=== PATIENT | female | born 1990 | race Two or more races ===

== ENCOUNTER 2021-05-05 09:05 | Outpatient (CLI) | payer OTHER ==
[~2021-05-05 09:05] MED LIST: KETO10TA2 PO; LABETALOL HCL200 MG PO; PRENATAL TABLE1 EACH PO; SLOW RELEASE I143 MG PO; Tylenol Extra Streng PO
== END 2021-05-05 10:05 | disposition home or self-care (01) ==
LOC: PPH VACUNA 09:05
PROVIDERS: ATTEND Emergency Medicine Pediatric Emergency Medicine
DX: Z23 Encounter for immunization (principal)

== ENCOUNTER 2022-04-07 14:10 | Outpatient (CLI) | payer OTHER | END 2022-04-07 14:15 | disposition home or self-care (01) | LOC: PPH VACUNA 14:10 | PROVIDERS: ATTEND Emergency Medicine Pediatric Emergency Medicine | DX: Z23 Encounter for immunization (principal) ==